=== PATIENT | female | born 1975 | race Two or more races ===

== ENCOUNTER 2024-04-18 07:46 | Outpatient (CLI) | payer OTHER | END 2024-04-18 07:53 | disposition home or self-care (01) | LOC: SONOGRAMA 07:46 | PROVIDERS: ATTEND Pathology Anatomic Pathology & Clinical Pathology | DX: D34 Benign neoplasm of thyroid gland (principal); E06.3 Autoimmune thyroiditis; E04.1 Nontoxic single thyroid nodule ==